=== PATIENT | female | born 1995 | race Two or more races ===

== ENCOUNTER 2018-06-22 16:45 | Emergency (ER) | payer MEDICAID ==
[~2018-06-22] VITALS: Ht 160 cm; Wt 49.9 kg
[2018-06-22 16:53] VITALS: BP 119/64
== END 2018-06-22 18:01 | disposition home or self-care (01) ==
LOC: ER 16:45
DX: D17.22 Benign lipomatous neoplasm of skin and subcutaneous tissue of left arm (principal)

== ENCOUNTER 2018-11-12 09:25 | Emergency (ER) | payer MEDICAID, OTHER ==
[~2018-11-12] VITALS: Ht 160 cm; Wt 51.7 kg
--- NOTE | 2018-11-12 09:49 | NUR ---
CAME IN FOR CHEST PRESSURE LIKE PAIN SINCE 6AM TODAY, NON RADIATING, ALSO C/O HEADACHE, NUMBNESS AT L AND R HANDS. TO ER BED 9, HOOKED TO MONITOR, VSS, CHANGED TO GOWN, WARM BLANKET PROVIDED, [employer] OPERATOR AT BEDSIDE, DR RUIZ AT [facility] FOR EVAL.
[2018-11-12] MEDS ORDERED: LORAZEPAM 1 MG TABLET PO ONE (10:00)
[2018-11-12] MEDS ORDERED: IBUPROFEN 600 MG TABLET PO ONE ×2 (10:00→10:02)
[2018-11-12] MEDS ORDERED: LORAZEPAM 0.5 MG TABLET ONE (10:01)
[2018-11-12 10:11] LABS: BASOPHILS % (AUTO) 0.6 % (0.0-2.0); EOSINOPHILS % (AUTO) 0.6 % (0.0-6.0); HEMATOCRIT 40 % (33-45); HEMOGLOBIN 13.6 g/dL (11.5-14.8); LYMPHOCYTES # (AUTO) 0.9 /CMM (0.8-4.8); LYMPHOCYTES % (AUTO) 15.6 % (20.0-44.0); MEAN CORPUSCULAR HGB CONC 34 g/dl (31.0-36.0); MEAN CORPUSCULAR VOLUME 96 fL (82-100); MONOCYTES # (AUTO) 0.4 /CMM (0.1-1.30); MONOCYTES % (AUTO) 7.5 % (2.0-12.0); NEUTROPHILS # (AUTO) 4.3 /CMM (1.8-8.9); NEUTROPHILS % (AUTO) 75.7 % (43.0-81.0); PLATELET COUNT (AUTO) 237 /CMM (150-450); RED BLOOD CELL COUNT(AUTO) 4.18 MIL/uL (4.0-5.2); WHITE BLOOD COUNT (AUTO) 5.7 K/uL (4.3-11.0)
[2018-11-12 10:20] LABS: CALCIUM, SERUM 9.1 mg/dL (8.5-10.1); CARBON DIOXIDE 27 mmol/L (21-32); CHLORIDE 104 mmol/L (98-107); CREATININE 0.7 mg/dL (0.6-1.3); GLUCOSE 104 mg/dL (74-106); POTASSIUM 3.7 mmol/L (3.5-5.1); SODIUM SERUM 138 mmol/L (136-145); UREA NITROGEN, BLOOD 11 mg/dL (7-18)
[2018-11-12 10:32] LABS: ALANINE AMINOTRANSFERASE 13 U/L (12-78); ALBUMIN 4.1 g/dL (3.4-5.0); ALKALINE PHOSPHATASE 62 U/L (46-116); ASPARTATE AMINOTRANSFERASE 20 U/L (15-37); B-TYPE NATRIURETIC PEPTIDE 124 PG/ML (0-125); BILIRUBIN,DIRECT 0.2 mg/dL (0.0-0.2); TOTAL PROTEIN, SERUM 7.8 g/dL (6.4-8.2)
--- NOTE | 2018-11-12 11:10 | NUR ---
Patient discharged to home in stable condition. Written and verbal after care instructions given. Patient verbalizes understanding of instruction.
[2018-11-12 11:18] VITALS: BP 129/73
== END 2018-11-12 11:10 | disposition home or self-care (01) ==
LOC: ER 09:32
DX: R07.89 Other chest pain (principal)
CPT/HCPCS: 36415; 71045-TC; 80048-TC; 80076-TC; 83880; 84484-TC; 84703-TC; 85025-TC; 85378-TC

== ENCOUNTER 2019-06-14 19:52 | Emergency (ER) | payer OTHER ==
[~2019-06-14] VITALS: Ht 160 cm; Wt 49.9 kg
[2019-06-14 20:01] VITALS: BP 124/71
== END 2019-06-14 21:29 | disposition home or self-care (01) ==
LOC: ER 19:58
DX: J06.9 Acute upper respiratory infection, unspecified (principal); J02.8 Acute pharyngitis due to other specified organisms; R19.7 Diarrhea, unspecified
CPT/HCPCS: 71045-TC; 86403-TC; 87070-TC

== ENCOUNTER 2019-06-15 05:31 | Emergency (ER) | payer OTHER ==
[~2019-06-15] VITALS: Ht 160 cm; Wt 49.9 kg
[2019-06-15 05:31] VITALS: BP 144/77
--- NOTE | 2019-06-15 05:31 | NUR ---
C/O "I WOKE UP SOB", L SIDED CP X2 DAYS. PT TO BED 2, PLACED ON MONITOR, VSS, NAD NOTED. PT WAS SEEN HERE FEW HRS AGO FOR SAME REASON, PENDING ER PROVIDER GALO
--- NOTE | 2019-06-15 05:58 | NUR ---
EKG DONE, REVIEWED BY ER DOCTOR, NO ORDERS AT THIS TIME
--- NOTE | 2019-06-15 07:08 | NUR ---
Patient discharged to home in stable condition. Written and verbal after care instructions given. Patient verbalizes understanding of instruction.
== END 2019-06-15 07:08 | disposition home or self-care (01) ==
LOC: ER 05:34
DX: R06.02 Shortness of breath (principal)
CPT/HCPCS: 71045-TC

== ENCOUNTER 2020-09-22 21:05 | Emergency (ER) | payer OTHER ==
[~2020-09-22] VITALS: Ht 160 cm; Wt 50.8 kg
--- NOTE | 2020-09-22 22:00 | NUR ---
PRSENTED TO THE ER FOR C/O EPIGASTRIC ABDOMINAL PAIN, HEADACHE X3 DAYS. REPORTED "I GOT DRUNK AND THREW UP IN MY SLEEP AND THERE WAS SOME BLOOD IN IT" AND WANTS TO GET CHESCKED OUT. URINE SAMPLE OBTAINED. PT WAS PLACED IN BED 10 ER, ON MONITOR. VSS. WILL CONT TO MONITOR ,
--- NOTE | 2020-09-22 22:04 | NUR ---
urine collected and sent to lab
[2020-09-22 22:11] LABS: BASOPHILS % (AUTO) 0.6 % (0.0-2.0); HEMATOCRIT 44 % (33-45); HEMOGLOBIN 14.7 g/dL (11.5-14.8); LYMPHOCYTES # (AUTO) 1.3 K/uL (0.8-4.8); LYMPHOCYTES % (AUTO) 21.1 % (20.0-44.0); MEAN CORPUSCULAR HGB CONC 33 g/dl (31.0-36.0); MEAN CORPUSCULAR VOLUME 94 fL (82-100); MONOCYTES # (AUTO) 0.6 K/uL (0.1-1.30); MONOCYTES % (AUTO) 10.2 % (2.0-12.0); NEUTROPHILS # (AUTO) 4.3 K/uL (1.8-8.9); NEUTROPHILS % (AUTO) 67.1 % (43.0-81.0); PLATELET COUNT (AUTO) 246 K/uL (150-450); WHITE BLOOD COUNT (AUTO) 6.4 K/uL (4.3-11.0)
[2020-09-22 22:14] LABS: BILIRUBIN,URINE Negative (NEGATIVE); COLOR,URINE YELLOW (YELLOW); LEUKOCYTE ESTERASE ,URINE Negative (NEGATIVE); NITRITE, URINE Negative (NEGATIVE); PH,URINE 6.5 (5.0-8.0); PROTEIN,URINE Negative (NEGATIVE); UGLUCOSE Negative (NEGATIVE); UROBILINOGEN,URINE 0.2 EU/dL (0.2)
[2020-09-22] MEDS ORDERED: MAG HYDROX/AL HYDROX/SIMETH 30 ML UDC ONE (22:23)
[2020-09-22] MEDS ORDERED: LIDOCAINE VISCOUS 2% UD 15 ML UDC ONE (22:23)
[2020-09-22 22:24] LABS: BACTERIA,URINE Rare /HPF (None Seen); SQUAMOUS EPITHELIAL CELL,UR Few /HPF (None Seen); WBC,URINE NONE SEEN /HPF (0-3)
[2020-09-22 22:24] LABS: CREATININE 0.7 mg/dL (0.6-1.3); POTASSIUM 3.9 mmol/L (3.5-5.1)
[2020-09-22] MEDS ORDERED: MAG HYDROX/AL HYDROX/SIMETH 30 ML UDC PO ONE (22:30)
[2020-09-22] MEDS ORDERED: LIDOCAINE VISCOUS 2% UD 15 ML UDC MM ONE (22:30)
[2020-09-22 22:31] LABS: ALBUMIN 4.3 g/dL (3.4-5.0); BILIRUBIN,DIRECT 0.1 mg/dL (0.0-0.2); BILIRUBIN,TOTAL 0.6 mg/dL (0.2-1.0); TOTAL PROTEIN, SERUM 8.5 g/dL (6.4-8.2)
[2020-09-22 23:32] VITALS: BP 123/68
--- NOTE | 2020-09-22 23:32 | NUR ---
Patient discharged to home in stable condition. Written and verbal after care instructions given. Patient verbalizes understanding of instruction.
== END 2020-09-22 23:33 | disposition home or self-care (01) ==
LOC: ER 21:09
DX: K22.6 Gastro-esophageal laceration-hemorrhage syndrome (principal); K29.70 Gastritis, unspecified, without bleeding
CPT/HCPCS: 36415; 80048-TC; 80076-TC; 81001; 83690-TC; 84703-TC; 85025-TC

== ENCOUNTER 2021-02-09 21:14 | Emergency (ER) | payer OTHER ==
[~2021-02-09] VITALS: Ht 160 cm; Wt 49.9 kg
[2021-02-09 21:20] VITALS: BP 126/68
--- NOTE | 2021-02-09 21:25 | NUR ---
URINE COLLECTED AND SENT TO LAB
--- NOTE | 2021-02-09 21:30 | NUR ---
BIBSELF C/O BURINING UPON URINATION, "FOGGY URINE", AND FLANK PAIN X1 DAY. PATIENT ALERT AND ORIENTED X3. AMBULATORY WITH NON LABORED BREATHING.
[2021-02-09 21:45] LABS: BILIRUBIN,URINE NEGATIVE (NEGATIVE); COLOR,URINE YELLOW (YELLOW); LEUKOCYTE ESTERASE ,URINE NEGATIVE (NEGATIVE); NITRITE, URINE NEGATIVE (NEGATIVE); PROTEIN,URINE NEGATIVE (NEGATIVE); UGLUCOSE NEGATIVE (NEGATIVE)
[2021-02-09 22:02] LABS: BACTERIA,URINE None seen /HPF (None Seen); RBC,URINE 0-2 /HPF (0-2); SQUAMOUS EPITHELIAL CELL,UR 0-2 /HPF (None Seen); WBC,URINE 0-2 /HPF (0-3)
[2021-02-09 22:03] LABS: URINE AMORPHOUS PHOSPHATES Moderate /HPF (None Seen)
--- NOTE | 2021-02-09 23:09 | NUR ---
Patient discharged to home in stable condition. Written and verbal after care instructions given. Patient verbalizes understanding of instruction.
== END 2021-02-09 23:44 | disposition home or self-care (01) ==
LOC: ER 21:20
DX: R30.0 Dysuria (principal)
CPT/HCPCS: 81001; 84703-TC; 87491; 87591